=== PATIENT | male | born 1985 | race Caucasian/White ===

== ENCOUNTER → 2024-01-28 | Emergency (ER) | payer OTHER ==
[~2024-01-28] VITALS: Ht 175.3 cm; Wt 81.8 kg
[2024-01-28 15:53] VITALS: TEMP 98.1
[2024-01-28 16:17] VITALS: BP 155/72; PULSE 88; RESP 16
[2024-01-28 16:36] LABS: BASOPHILS % (AUTO) 0.5 % (0.0-2.0); EOSINOPHILS % (AUTO) 3.5 % (1.0-6.0); HEMATOCRIT 44.6 % (41-53); LYMPHOCYTES # (AUTO) 1.7 K/uL (1.0-4.8); MEAN CORPUSCULAR HGB CONC 33.5 G/dL (31.0-37.0); MEAN CORPUSCULAR VOLUME 92 fL (80-100); MONOCYTES # (AUTO) 0.4 K/uL (0.1-1.0); MONOCYTES % (AUTO) 8.4 % (2.0-9.0); NEUTROPHILS # (AUTO) 2.9 K/uL (1.8-7.7); NEUTROPHILS % (AUTO) 55.6 % (40.0-70.0); PLATELET COUNT (AUTO) 278 K/uL (150-450); RED BLOOD CELL COUNT(AUTO) 4.83 MIL/uL (4.50-5.90); RED CELL DISTRIBUTION WIDTH 13.8 % (11.5-14.5); WHITE BLOOD COUNT (AUTO) 5.3 K/uL (4.5-11.0)
[2024-01-28 16:45] LABS: ANION GAP 9 mmol/L (8-16); CALCIUM, TOTAL 8.7 mg/dL (8.8-10.5); CARBON DIOXIDE 26 mmol/L (22-29); CHLORIDE 104 mmol/L (98-107); GLOMERULAR FILTR. RATE CALC > 60 mL/min (>60); GLUCOSE,RANDOM 102 mg/dL (70-110); POTASSIUM 3.7 mmol/L (3.5-5.1); PROTHROMBIN TIME 10.9 SEC (9.4-11.6); SODIUM SERUM 139 mmol/L (136-145); UREA NITROGEN, BLOOD 15 mg/dL (7-18)
[2024-01-28 16:53] LABS: TROPONIN I-HIGH SENSITIVITY 6 ng/L (<76)
[2024-01-28 16:59] LABS: B-TYPE NATRIURETIC PEPTIDE < 5 pg/mL (0-100)
[2024-01-28 17:09] LABS: CREATINE KINASE, TOTAL ONLY 180 U/L (39-308)
== END | disposition still patient (30) ==
LOC: EMS 15:51
DX: R07.89 Other chest pain (principal); Z59.00 Homelessness unspecified
CPT/HCPCS: 71045; 80048; 82550; 83880; 84484; 85025; 85610; 85730; 93005; 99285; 36415-L1; 36415-TC

== ENCOUNTER 2024-02-06 05:30 | Emergency (ER) | payer OTHER ==
[~2024-02-06] VITALS: Ht 175.3 cm; Wt 84.1 kg
[2024-02-06 06:10] VITALS: BP 134/89; PULSE 75; RESP 16; TEMP 97.3
[2024-02-06] MEDS ORDERED: ACET-3385 PO (06:17)
[2024-02-06] MEDS ORDERED: AMOX-457 PO (06:17)
[2024-02-06] MEDS ORDERED: IBUP-1492 PO (06:17)
[2024-02-06] MEDS: AMOX TR/POT CLAV 875 MG/125 MG TABLET PO ONE (06:20)
[2024-02-06] MEDS: IBUPROFEN 600 MG TABLET PO ONE (06:21)
== END 2024-02-06 06:58 | disposition home or self-care (01) ==
LOC: EMS 05:31
DX: K08.89 Other specified disorders of teeth and supporting structures (principal)
CPT/HCPCS: 99283

== ENCOUNTER 2024-02-11 22:00 | Emergency (ER) | payer MEDICAID, OTHER ==
[~2024-02-11 22:00] MED LIST: ACET-3385 PO; AMOX-457 PO; IBUP-1492 PO
[2024-02-11 22:22] VITALS: TEMP 98
[2024-02-11] MEDS: ACETAMINOPHEN 500 MG TABLET PO ONE (23:02)
[2024-02-11] MEDS: HydrOXYzine PAMOATE 25 MG CAPSULE PO ONE (23:02)
[2024-02-11] MEDS: KETOROLAC TROMETHAMINE 60 MG/2 ML VIAL IM ONE (23:02)
[2024-02-12 00:15] VITALS: BP 124/77; PULSE 76; RESP 16
[2024-02-12] MEDS ORDERED: HYDR-4808 PO (01:03)
[2024-02-12] MEDS ORDERED: IBUP-1554 PO (01:03)
== END 2024-02-12 01:15 | disposition home or self-care (01) ==
LOC: EMS 22:00
DX: F41.9 Anxiety disorder, unspecified (principal); R07.89 Other chest pain
CPT/HCPCS: 99284; 71045; 93005; 96372; J1885

== ENCOUNTER 2024-02-17 21:53 | Emergency (ER) | payer MEDICAID ==
[~2024-02-17] VITALS: Ht 175.3 cm; Wt 86.0 kg
[~2024-02-17 21:53] MED LIST changes: +HYDR-4808 PO; +IBUP-1554 PO
[2024-02-17 22:04] VITALS: BP 120/71; PULSE 68; RESP 20; TEMP 98.3
[2024-02-17] MEDS: OxyCODONE HCL/ACETAMINOPHEN 5-325 MG TABLET PO ONE (23:27)
[2024-02-17] MEDS: PENICILLIN V POTASSIUM 500 MG TABLET PO ONE (23:27)
[2024-02-17] MEDS ORDERED: PENI500T2 PO (23:36)
[2024-02-17] MEDS ORDERED: PERCT PO (23:46)
[2024-02-19] MEDS ORDERED: PERCT PO (10:08)
[2024-02-19] MEDS ORDERED: PENI500T2 PO (10:08)
== END 2024-02-18 00:15 | disposition home or self-care (01) ==
LOC: EMS 21:53
DX: K02.9 Dental caries, unspecified (principal)
CPT/HCPCS: 99283

== ENCOUNTER 2024-02-18 20:44 | Emergency (ER) | payer MEDICAID, OTHER ==
[~2024-02-18] VITALS: Ht 175.3 cm; Wt 86.4 kg
[~2024-02-18 20:44] MED LIST changes: +PENI500T2 PO; +PERCT PO
[2024-02-18 20:46] VITALS: TEMP 97.9
[2024-02-18 21:46] LABS: BASOPHILS % (AUTO) 0.2 % (0.0-2.0); EOSINOPHILS % (AUTO) 2.9 % (1.0-6.0); HEMATOCRIT 43.1 % (41-53); HEMOGLOBIN 14.5 g/dL (13.5-17.5); LYMPHOCYTES # (AUTO) 2.9 K/uL (1.0-4.8); LYMPHOCYTES % (AUTO) 35.6 % (22.0-44.0); MEAN CORPUSCULAR HEMOGLOBIN 31.1 pg (26.0-34.0); MEAN CORPUSCULAR HGB CONC 33.6 G/dL (31.0-37.0); MEAN CORPUSCULAR VOLUME 93 fL (80-100); MONOCYTES # (AUTO) 0.7 K/uL (0.1-1.0); MONOCYTES % (AUTO) 8.7 % (2.0-9.0); NEUTROPHILS # (AUTO) 4.3 K/uL (1.8-7.7); NEUTROPHILS % (AUTO) 52.6 % (40.0-70.0); PLATELET COUNT (AUTO) 278 K/uL (150-450); RED BLOOD CELL COUNT(AUTO) 4.65 MIL/uL (4.50-5.90); RED CELL DISTRIBUTION WIDTH 13.9 % (11.5-14.5); WHITE BLOOD COUNT (AUTO) 8.2 K/uL (4.5-11.0)
[2024-02-18 21:54] LABS: ANION GAP 4 mmol/L (8-16); CARBON DIOXIDE 31 mmol/L (22-29); CHLORIDE 103 mmol/L (98-107); CREATININE 1.04 mg/dL (0.60-1.30); GLOMERULAR FILTR. RATE CALC > 60 mL/min (>60); GLUCOSE,RANDOM 104 mg/dL (70-110); POTASSIUM 3.7 mmol/L (3.5-5.1); SODIUM SERUM 138 mmol/L (136-145); UREA NITROGEN, BLOOD 27 mg/dL (7-18)
[2024-02-18 22:03] LABS: TROPONIN I-HIGH SENSITIVITY 6 ng/L (<76)
[2024-02-18 23:13] LABS: APPEARANCE,URINE CLEAR (CLEAR); BILIRUBIN,URINE NEGATIVE (NEGATIVE); COLOR,URINE LIGHT YELLOW (YELLOW); GLUCOSE, URINE (UA) NEGATIVE (NEGATIVE); KETONES,URINE NEGATIVE (NEGATIVE); LEUKOCYTE ESTERASE ,URINE NEGATIVE (NEGATIVE); NITRATE,URINE NEGATIVE (NEGATIVE); OCCULT BLOOD,URINE NEGATIVE (NEGATIVE); PROTEIN,URINE NEGATIVE (NEGATIVE); SPECIFIC GRAVITIY, URINE 1.021 (1.003-1.030); UROBILINOGEN,URINE <=1.0 mg/dL (<=1.0)
[2024-02-18] MEDS: TraMADol HCL 50 MG TABLET PO ONE (23:14)
[2024-02-18 23:23] LABS: ALANINE AMINOTRANSFERASE 39 U/L (12-78); ALBUMIN 3.5 g/dL (3.4-5.0); ALKALINE PHOSPHATASE 59 U/L (46-116); ASPARTATE AMINOTRANSFERASE 18 U/L (15-37); BILIRUBIN,TOTAL 0.2 mg/dL (0.1-1.0); CREATINE KINASE, TOTAL ONLY 99 U/L (39-308); TOTAL PROTEIN, SERUM 6.9 g/dL (6.4-8.2)
[2024-02-19 00:25] VITALS: BP 114/80; PULSE 68; RESP 16
[2024-02-19 00:39] LABS: TROPONIN I-HIGH SENSITIVITY 6 ng/L (<76)
[2024-02-19] MEDS ORDERED: PERCT PO (10:08)
[2024-02-19] MEDS ORDERED: PENI500T2 PO (10:08)
== END 2024-02-19 00:35 | disposition home or self-care (01) ==
LOC: EMS 20:44
DX: K02.9 Dental caries, unspecified (principal); R07.89 Other chest pain; Z72.89 Other problems related to lifestyle
CPT/HCPCS: 71045; 80053; 81003; 82550; 83880; 84484; 85025; 93005; 99285; 36415-L1; 36415-TC

== ENCOUNTER 2024-05-20 02:31 | Emergency (ER) | payer OTHER ==
[~2024-05-20] VITALS: Ht 175.3 cm; Wt 81.8 kg
[2024-05-20 02:32] VITALS: TEMP 98.1
[2024-05-20 03:05] LABS: BASOPHILS % (AUTO) 0.4 % (0.0-2.0); EOSINOPHILS % (AUTO) 2.1 % (1.0-6.0); HEMATOCRIT 48.2 % (41-53); HEMOGLOBIN 16.7 g/dL (13.5-17.5); LYMPHOCYTES # (AUTO) 2.6 K/uL (1.0-4.8); LYMPHOCYTES % (AUTO) 34.1 % (22.0-44.0); MEAN CORPUSCULAR HEMOGLOBIN 31.4 pg (26.0-34.0); MEAN CORPUSCULAR HGB CONC 34.6 G/dL (31.0-37.0); MEAN CORPUSCULAR VOLUME 91 fL (80-100); MONOCYTES # (AUTO) 0.5 K/uL (0.1-1.0); MONOCYTES % (AUTO) 6.7 % (2.0-9.0); NEUTROPHILS # (AUTO) 4.3 K/uL (1.8-7.7); NEUTROPHILS % (AUTO) 56.7 % (40.0-70.0); PLATELET COUNT (AUTO) 367 K/uL (150-450); RED BLOOD CELL COUNT(AUTO) 5.31 MIL/uL (4.50-5.90); RED CELL DISTRIBUTION WIDTH 13.6 % (11.5-14.5); WHITE BLOOD COUNT (AUTO) 7.6 K/uL (4.5-11.0)
[2024-05-20 03:16] LABS: ANION GAP 6 mmol/L (8-16); CALCIUM, TOTAL 8.9 mg/dL (8.8-10.5); CARBON DIOXIDE 32 mmol/L (22-29); CHLORIDE 101 mmol/L (98-107); CREATININE 0.95 mg/dL (0.60-1.30); GLOMERULAR FILTR. RATE CALC > 60 mL/min (>60); GLUCOSE,RANDOM 108 mg/dL (70-110); POTASSIUM 3.8 mmol/L (3.5-5.1); SODIUM SERUM 139 mmol/L (136-145); UREA NITROGEN, BLOOD 8 mg/dL (7-18)
[2024-05-20 03:35] LABS: TROPONIN I-HIGH SENSITIVITY 7 ng/L (<76)
[2024-05-20] MEDS: KETOROLAC TROMETHAMINE 30 MG/ML VIAL IM ONE (03:36)
[2024-05-20] MEDS: ACETAMINOPHEN 325 MG TABLET PO ONE (03:36)
[2024-05-20 04:40] VITALS: BP 135/91; PULSE 99; RESP 20; O2SAT 99
[2024-05-20] MEDS ORDERED: ACET-66 PO (15:17)
[2024-05-20] MEDS ORDERED: MAG30ORA11 PO (15:17)
[2024-05-20] MEDS ORDERED: OMEP20 PO (15:17)
== END 2024-05-20 05:10 | disposition home or self-care (01) ==
LOC: EMS 02:31
DX: R07.89 Other chest pain (principal); F41.9 Anxiety disorder, unspecified; M54.6 Pain in thoracic spine
CPT/HCPCS: 99285; 71045; 80048; 84484; 85025; 36415; 93005; 96372; J1885

== ENCOUNTER 2024-05-20 14:04 | Emergency (ER) | payer OTHER ==
[~2024-05-20] VITALS: Ht 175.3 cm; Wt 72.7 kg
[2024-05-20 14:07] VITALS: TEMP 98.6
[2024-05-20] MEDS: PB/HYOSCY/ATR/SCOP/LIDO/MAALOX 55 ML BOTTLE PO ONE (14:56)
[2024-05-20] MEDS: ONDANSETRON 4 MG TABLET PO ONE (14:57)
[2024-05-20] MEDS: ACETAMINOPHEN 500 MG TABLET PO ONE (14:57)
[2024-05-20] MEDS ORDERED: ACET-66 PO (15:17)
[2024-05-20] MEDS ORDERED: OMEP20 PO (15:17)
[2024-05-20] MEDS ORDERED: MAG30ORA11 PO (15:17)
[2024-05-20 15:29] VITALS: BP 136/88; PULSE 88; RESP 18; O2SAT 98
== END 2024-05-20 15:30 | disposition home or self-care (01) ==
LOC: EMS 14:05
DX: K29.70 Gastritis, unspecified, without bleeding (principal); F41.9 Anxiety disorder, unspecified
CPT/HCPCS: 99284; Q0162

== ENCOUNTER 2024-07-10 15:03 | Emergency (ER) | payer OTHER ==
[~2024-07-10] VITALS: Ht 177.8 cm; Wt 77.3 kg
[~2024-07-10 15:03] MED LIST changes: -ACET-3385 PO; +ACET-66 PO; -AMOX-457 PO; -HYDR-4808 PO; -IBUP-1492 PO; -IBUP-1554 PO; +MAG30ORA11 PO; +OMEP20 PO; -PENI500T2 PO; -PERCT PO
[2024-07-10 15:07] VITALS: BP 125/72; PULSE 90; RESP 18; TEMP 98.6; O2SAT 99
[2024-07-10 15:27] LABS: BASOPHILS % (AUTO) 0.3 % (0.0-2.0); HEMATOCRIT 47.6 % (41-53); HEMOGLOBIN 15.9 g/dL (13.5-17.5); LYMPHOCYTES # (AUTO) 1.6 K/uL (1.0-4.8); LYMPHOCYTES % (AUTO) 24.3 % (22.0-44.0); MEAN CORPUSCULAR HGB CONC 33.5 G/dL (31.0-37.0); MEAN CORPUSCULAR VOLUME 93 fL (80-100); MONOCYTES # (AUTO) 0.4 K/uL (0.1-1.0); MONOCYTES % (AUTO) 6.4 % (2.0-9.0); NEUTROPHILS # (AUTO) 4.5 K/uL (1.8-7.7); PLATELET COUNT (AUTO) 276 K/uL (150-450); RED BLOOD CELL COUNT(AUTO) 5.14 MIL/uL (4.50-5.90); RED CELL DISTRIBUTION WIDTH 14.1 % (11.5-14.5); WHITE BLOOD COUNT (AUTO) 6.7 K/uL (4.5-11.0)
[2024-07-10 15:39] LABS: ANION GAP 6 mmol/L (8-16); CALCIUM, TOTAL 8.4 mg/dL (8.8-10.5); CARBON DIOXIDE 31 mmol/L (22-29); CHLORIDE 106 mmol/L (98-107); CREATININE 0.98 mg/dL (0.60-1.30); GLOMERULAR FILTR. RATE CALC > 60 mL/min (>60); GLUCOSE,RANDOM 101 mg/dL (70-110); POTASSIUM 3.9 mmol/L (3.5-5.1); SODIUM SERUM 143 mmol/L (136-145); UREA NITROGEN, BLOOD 18 mg/dL (7-18)
[2024-07-10 16:43] LABS: PH,URINE DRUG SCREEN 6.5 (5.0-8.0)
[2024-07-10 16:49] LABS: ALCOHOL, URINE DRUG SCREEN NEGATIVE (NEGATIVE); AMPHET/METH SCREEN,URINE POSITIVE (NEGATIVE); BARBITURATE SCREEN, URINE NEGATIVE (NEGATIVE); BENZODIAZEPINES SCREEN,URINE NEGATIVE (NEGATIVE); CANNABINOID SCREEN,URINE NEGATIVE (NEGATIVE); COCAINE SCREEN,URINE NEGATIVE (NEGATIVE); METHADONE SCREEN, URINE NEGATIVE (NEGATIVE); OPIATE SCREEN,URINE NEGATIVE (NEGATIVE); PHENCYCLIDINE SCREEN,URINE NEGATIVE (NEGATIVE)
[2024-07-10] MEDS ORDERED: HYDR50CA7 PO (17:33)
== END 2024-07-10 17:42 | disposition home or self-care (01) ==
LOC: EMS 15:10
DX: R07.89 Other chest pain (principal); R06.02 Shortness of breath; R51.9 Headache, unspecified; F41.9 Anxiety disorder, unspecified; F15.10 Other stimulant abuse, uncomplicated
CPT/HCPCS: 71045; 80048; 80307; 85025; 93005; 99285; 36415-L1; 36415-TC

== ENCOUNTER → 2025-04-06 | Emergency (ER) | payer OTHER ==
[~2025-04-06] VITALS: Ht 175.3 cm; Wt 75.0 kg
[~2025-04-06] MED LIST changes: +HYDR50CA7 PO; +OMEP-148 PO; -OMEP20 PO
[2025-04-06 18:54] LABS: PLATELET COUNT (AUTO) 330 K/uL (150-450); RED BLOOD CELL COUNT(AUTO) 5.69 MIL/uL (4.50-5.90); RED CELL DISTRIBUTION WIDTH 13.9 % (11.5-14.5); WHITE BLOOD COUNT (AUTO) 9.6 K/uL (4.5-11.0)
[2025-04-06 19:05] LABS: CALCIUM, TOTAL 9.4 mg/dL (8.8-10.5); CREATININE 1.06 mg/dL (0.60-1.30); GLOMERULAR FILTR. RATE CALC > 60 mL/min (>60); GLUCOSE,RANDOM 99 mg/dL (70-110); SODIUM SERUM 138 mmol/L (136-145); UREA NITROGEN, BLOOD 9 mg/dL (7-18)
[2025-04-06] MEDS: POTASSIUM CHLORIDE 20 MEQ ER TABLET PO ONE (19:29)
[2025-04-06] MEDS: SODIUM CHLORIDE 0.9% 1,000 ML IV ONE (19:30)
[2025-04-06] MEDS: LORazepam 2 MG/ML VIAL IVP ONE (19:31)
[2025-04-06 20:02] LABS: COVID AG,FIA SOURCE NASAL SWAB
[2025-04-06 20:33] LABS: SARS-COV2 (COVID) ANTIGEN,FIA Negative (Negative)
[2025-04-06 21:27] VITALS: BP 128/75; PULSE 90; RESP 20; TEMP 97.9; O2SAT 100
== END | disposition still patient (30) ==
LOC: EMS 18:05
DX: F41.9 Anxiety disorder, unspecified (principal); F15.10 Other stimulant abuse, uncomplicated; F10.90 Alcohol use, unspecified, uncomplicated; Z20.822 Contact with and (suspected) exposure to COVID-19; Y90.9 Presence of alcohol in blood, level not specified
CPT/HCPCS: 99283; 96374; 96361; 87426; 80048; 85025; 36415; G0480; J2060; J7030

== ENCOUNTER 2025-04-17 21:13 | Emergency (ER) | payer OTHER ==
[~2025-04-17] VITALS: Ht 172.7 cm; Wt 81.8 kg
[2025-04-17 21:36] VITALS: TEMP 98.6
[2025-04-17 22:19] LABS: PLATELET COUNT (AUTO) 298 K/uL (150-450); RED BLOOD CELL COUNT(AUTO) 5.32 MIL/uL (4.50-5.90); RED CELL DISTRIBUTION WIDTH 13.8 % (11.5-14.5); WHITE BLOOD COUNT (AUTO) 6.7 K/uL (4.5-11.0)
[2025-04-17 22:24] LABS: CALCIUM, TOTAL 8.8 mg/dL (8.8-10.5); CREATININE 0.80 mg/dL (0.60-1.30); GLOMERULAR FILTR. RATE CALC > 60 mL/min (>60); GLUCOSE,RANDOM 106 mg/dL (70-110); SODIUM SERUM 138 mmol/L (136-145); UREA NITROGEN, BLOOD 8 mg/dL (7-18)
[2025-04-17 22:29] LABS: CREATINE KINASE, TOTAL ONLY 125 U/L (39-308)
[2025-04-17 22:32] LABS: TROPONIN I-HIGH SENSITIVITY 4 ng/L (<76)
[2025-04-18 01:46] VITALS: BP 119/84; PULSE 84; RESP 16; O2SAT 97
[2025-04-18] MEDS: MECLIZINE HCL 25 MG TABLET PO ONE (02:09)
== END 2025-04-18 03:55 | disposition home or self-care (01) ==
LOC: EMS 21:13
DX: R42 Dizziness and giddiness (principal); R06.02 Shortness of breath; F15.90 Other stimulant use, unspecified, uncomplicated
CPT/HCPCS: 71045; 80048; 82550; 83880; 84484; 85025; 85379; 93005; 99285; 36415-L1; 36415-TC

== ENCOUNTER 2025-04-29 00:46 | Emergency (ER) | payer OTHER ==
[~2025-04-29] VITALS: Ht 172.7 cm; Wt 81.8 kg
[2025-04-29 01:00] VITALS: BP 143/80; PULSE 80; RESP 16; TEMP 98.7; O2SAT 98
[2025-04-29] MEDS ORDERED: AMOX500C2 PO (01:20)
[2025-04-29] MEDS ORDERED: HYDR-4062 PO (01:20)
[2025-04-29] MEDS ORDERED: IBUP-1493 PO (01:20)
[2025-04-29] MEDS: LIDOCAINE/PF 1% 2 ML VIAL IM ONE (01:41)
[2025-04-29] MEDS: KETOROLAC TROMETHAMINE 30 MG/ML VIAL IM ONE (01:41)
[2025-04-29] MEDS: CefTRIAXone SODIUM 1 GM/VIAL IM ONE (01:41)
== END 2025-04-29 02:07 | disposition home or self-care (01) ==
LOC: EMS 00:47
DX: K02.9 Dental caries, unspecified (principal); K04.7 Periapical abscess without sinus; K08.89 Other specified disorders of teeth and supporting structures; R68.84 Jaw pain; F17.210 Nicotine dependence, cigarettes, uncomplicated; F10.90 Alcohol use, unspecified, uncomplicated; Z79.899 Other long term (current) drug therapy; Y90.9 Presence of alcohol in blood, level not specified
CPT/HCPCS: 99284; 96372; J1885; J0696; J3490

== ENCOUNTER 2025-04-29 18:55 | Emergency (ER) | payer OTHER ==
[~2025-04-29] VITALS: Ht 170.2 cm; Wt 68.2 kg
[~2025-04-29 18:55] MED LIST changes: -ACET-66 PO; +AMOX500C2 PO; +HYDR-4062 PO; -HYDR50CA7 PO; +IBUP-1493 PO; -MAG30ORA11 PO; -OMEP-148 PO
[2025-04-29 19:30] VITALS: BP 129/89; PULSE 92; RESP 18; TEMP 97.8; O2SAT 99
[2025-04-29 19:31] LABS: PLATELET COUNT (AUTO) 251 K/uL (150-450); RED BLOOD CELL COUNT(AUTO) 4.88 MIL/uL (4.50-5.90); RED CELL DISTRIBUTION WIDTH 13.4 % (11.5-14.5); WHITE BLOOD COUNT (AUTO) 7.3 K/uL (4.5-11.0)
[2025-04-29] MEDS: FAMOTIDINE 20 MG TABLET PO ONE (19:35)
[2025-04-29] MEDS: ACETAMINOPHEN 500 MG TABLET PO ONE (19:36)
[2025-04-29] MEDS: MAG HYDROX/ALUMINUM HYD/SIMETH 30 ML SUSPENSION UDCUP PO ONE (19:36)
[2025-04-29 19:45] LABS: CALCIUM, TOTAL 8.7 mg/dL (8.8-10.5); CREATININE 0.70 mg/dL (0.60-1.30); GLOMERULAR FILTR. RATE CALC > 60 mL/min (>60); GLUCOSE,RANDOM 109 mg/dL (70-110); SODIUM SERUM 140 mmol/L (136-145); UREA NITROGEN, BLOOD 14 mg/dL (7-18)
[2025-04-29 19:52] LABS: TROPONIN I-HIGH SENSITIVITY 7 ng/L (<76)
== END 2025-04-29 21:27 | disposition home or self-care (01) ==
LOC: EMS 18:55
DX: R07.89 Other chest pain (principal); F15.90 Other stimulant use, unspecified, uncomplicated; F41.9 Anxiety disorder, unspecified; K02.9 Dental caries, unspecified; F10.90 Alcohol use, unspecified, uncomplicated; Y90.9 Presence of alcohol in blood, level not specified
CPT/HCPCS: 99285; 71045; 80048; 84484; 85025; 36415; 93005; G0480

== ENCOUNTER 2025-05-02 16:42 | Emergency (ER) | payer OTHER ==
[~2025-05-02] VITALS: Ht 175.3 cm; Wt 81.8 kg
[2025-05-02] MEDS: ACETAMINOPHEN 500 MG TABLET PO ONE (17:36)
[2025-05-02 17:37] VITALS: TEMP 98.1
[2025-05-02 18:38] LABS: CALCIUM, TOTAL 9.0 mg/dL (8.8-10.5); CREATININE 0.78 mg/dL (0.60-1.30); GLOMERULAR FILTR. RATE CALC > 60 mL/min (>60); GLUCOSE,RANDOM 117 mg/dL (70-110); SODIUM SERUM 138 mmol/L (136-145); UREA NITROGEN, BLOOD 8 mg/dL (7-18)
[2025-05-02 18:39] LABS: PLATELET COUNT (AUTO) 320 K/uL (150-450); RED BLOOD CELL COUNT(AUTO) 5.50 MIL/uL (4.50-5.90); RED CELL DISTRIBUTION WIDTH 13.5 % (11.5-14.5); WHITE BLOOD COUNT (AUTO) 7.7 K/uL (4.5-11.0)
[2025-05-02 18:54] LABS: TROPONIN I-HIGH SENSITIVITY 5 ng/L (<76)
[2025-05-02] MEDS: POTASSIUM CHLORIDE 20 MEQ ER TABLET PO ONE (19:01)
[2025-05-02 19:04] LABS: PH,URINE DRUG SCREEN 7.5 (5.0-8.0)
[2025-05-02 19:08] LABS: ALCOHOL, URINE DRUG SCREEN NEGATIVE (NEGATIVE); AMPHET/METH SCREEN,URINE POSITIVE (NEGATIVE); BARBITURATE SCREEN, URINE NEGATIVE (NEGATIVE); CANNABINOID SCREEN,URINE NEGATIVE (NEGATIVE); COCAINE SCREEN,URINE NEGATIVE (NEGATIVE); METHADONE SCREEN, URINE NEGATIVE (NEGATIVE)
[2025-05-02 19:52] VITALS: BP 140/88; PULSE 76; RESP 18; O2SAT 97
== END 2025-05-02 19:54 | disposition home or self-care (01) ==
LOC: EMS 16:42
DX: R07.89 Other chest pain (principal); F15.10 Other stimulant abuse, uncomplicated; F41.9 Anxiety disorder, unspecified; F10.90 Alcohol use, unspecified, uncomplicated; Y90.9 Presence of alcohol in blood, level not specified
CPT/HCPCS: 71045; 80048; 80307; 84484; 85025; 93005; 99285; 36415-L1; 36415-TC

== ENCOUNTER 2025-05-12 21:30 | Emergency (ER) | payer OTHER ==
[~2025-05-12] VITALS: Ht 174 cm; Wt 84.1 kg
[2025-05-13 01:10] VITALS: TEMP 98.2
[2025-05-13 03:00] VITALS: BP 142/88; PULSE 68; RESP 18; O2SAT 99
[2025-05-13] MEDS: ACETAMINOPHEN 500 MG TABLET PO ONE (04:52)
[2025-05-13] MEDS: IBUPROFEN 400 MG TABLET PO ONE (04:52)
[2025-05-13] MEDS: LIDOCAINE 5% TRANSDERMAL PATCH TD ONE (04:53)
== END 2025-05-13 05:30 | disposition home or self-care (01) ==
LOC: EMS 21:30
DX: S23.3XXA Sprain of ligaments of thoracic spine, initial encounter (principal); I10 Essential (primary) hypertension; X50.3XXA Overexertion from repetitive movements, initial encounter; Y93.89 Activity, other specified; Y92.89 Other specified places as the place of occurrence of the external cause; Y99.8 Other external cause status
CPT/HCPCS: 93005; 99284; Z7502; Z7610

== ENCOUNTER 2025-05-24 09:10 | Emergency (ER) | payer OTHER ==
[~2025-05-24] VITALS: Ht 175.3 cm; Wt 86.4 kg
[2025-05-24 09:28] LABS: COVID AG,FIA SOURCE NASAL SWAB
[2025-05-24 10:08] LABS: SARS-COV2 (COVID) ANTIGEN,FIA Negative (Negative)
[2025-05-24 10:09] LABS: INFLUENZA TYPE A NEGATIVE FOR TYPE A (NEGATIVE); INFLUENZA TYPE B NEGATIVE FOR TYPE B (NEGATIVE)
[2025-05-24] MEDS ORDERED: BENZ-227 PO (12:12)
[2025-05-24] MEDS ORDERED: AZIT250T9 PO (12:12)
[2025-05-24] MEDS: ALBUTEROL SULFATE HFA 90 MCG/PUFF 8 GM INHALER IH ONE (12:34)
[2025-05-24] MEDS: AZITHROMYCIN 500 MG TABLET PO ONE (12:34)
[2025-05-24 13:05] VITALS: BP 131/82; PULSE 69; RESP 16; TEMP 98.2; O2SAT 99
== END 2025-05-24 13:51 | disposition home or self-care (01) ==
LOC: EMS 09:12
DX: J18.9 Pneumonia, unspecified organism (principal); R05.9 Cough, unspecified; F15.90 Other stimulant use, unspecified, uncomplicated; Z87.891 Personal history of nicotine dependence; Z20.822 Contact with and (suspected) exposure to COVID-19
CPT/HCPCS: 99284; 71046; 87426; 87804; 94640; J0456; J3535

== ENCOUNTER 2025-06-05 16:15 | Emergency (ER) | payer OTHER ==
[~2025-06-05] VITALS: Ht 177.8 cm; Wt 81.8 kg
[~2025-06-05 16:15] MED LIST changes: -AMOX500C2 PO; +AZIT250T9 PO; +BENZ-227 PO; -HYDR-4062 PO; -IBUP-1493 PO
[2025-06-05 16:21] VITALS: BP 130/80; PULSE 84; RESP 18; TEMP 98.1; O2SAT 99
[2025-06-05 17:11] LABS: COVID AG,FIA SOURCE NASAL SWAB
[2025-06-05 17:26] LABS: SARS-COV2 (COVID) ANTIGEN,FIA Negative (Negative)
[2025-06-05 17:32] LABS: INFLUENZA TYPE A NEGATIVE FOR TYPE A (NEGATIVE); INFLUENZA TYPE B NEGATIVE FOR TYPE B (NEGATIVE)
[2025-06-05] MEDS ORDERED: ALBU18HF12 IH (17:50)
== END 2025-06-05 18:16 | disposition home or self-care (01) ==
LOC: EMS 16:15
DX: R05.9 Cough, unspecified (principal); R06.02 Shortness of breath; J18.9 Pneumonia, unspecified organism; F15.90 Other stimulant use, unspecified, uncomplicated; Z87.891 Personal history of nicotine dependence; Z79.899 Other long term (current) drug therapy; Z20.822 Contact with and (suspected) exposure to COVID-19
CPT/HCPCS: 71046; 87804; 99284

== ENCOUNTER 2025-06-07 20:20 | Emergency (ER) | payer OTHER ==
[~2025-06-07] VITALS: Ht 172.7 cm; Wt 81.8 kg
[~2025-06-07 20:20] MED LIST changes: +ALBU18HF12 IH
[2025-06-07 20:44] VITALS: BP 147/106; PULSE 104; RESP 16; TEMP 98.8; O2SAT 98
[2025-06-07 22:10] LABS: CALCIUM, TOTAL 8.8 mg/dL (8.8-10.5); CREATININE 0.76 mg/dL (0.60-1.30); GLOMERULAR FILTR. RATE CALC > 60 mL/min (>60); GLUCOSE,RANDOM 115 mg/dL (70-110); SODIUM SERUM 138 mmol/L (136-145); UREA NITROGEN, BLOOD 7 mg/dL (7-18)
[2025-06-07 22:16] LABS: PLATELET COUNT (AUTO) 311 K/uL (150-450); RED BLOOD CELL COUNT(AUTO) 5.20 MIL/uL (4.50-5.90); RED CELL DISTRIBUTION WIDTH 13.9 % (11.5-14.5); WHITE BLOOD COUNT (AUTO) 5.8 K/uL (4.5-11.0)
[2025-06-07 22:17] LABS: BAND NEUTROPHILS % (MANUAL) 0 % (0-5)
[2025-06-07 22:35] LABS: LYMPHOCYTES % (MANUAL) 37 % (22-44); MONOCYTES % (MANUAL) 4 % (2-9); SEGMENTED NEUTROPHILS % 59 % (40-70)
[2025-06-07 23:32] LABS: TROPONIN I-HIGH SENSITIVITY 8 ng/L (<76)
[2025-06-08] MEDS: SODIUM CHLORIDE 0.9% 1,000 ML IV ONE (00:06)
[2025-06-09] MEDS ORDERED: FAMO20 PO (02:14)
== END 2025-06-08 03:05 | disposition home or self-care (01) ==
LOC: EMS 20:22
DX: E86.0 Dehydration (principal); F15.90 Other stimulant use, unspecified, uncomplicated; Z79.899 Other long term (current) drug therapy
CPT/HCPCS: 99285; 71045; 80048; 84484; 85025; 36415; 93005; 96360; 96361; G0480; J7030

== ENCOUNTER 2025-06-08 22:09 | Emergency (ER) | payer OTHER ==
[~2025-06-08] VITALS: Ht 167.6 cm; Wt 81.8 kg
[2025-06-08] MEDS: MAG HYDROX/ALUMINUM HYD/SIMETH ES 30 ML SUSPENSION UDCUP PO ONE (23:00)
[2025-06-08 23:56] LABS: PLATELET COUNT (AUTO) 291 K/uL (150-450); RED BLOOD CELL COUNT(AUTO) 4.99 MIL/uL (4.50-5.90); RED CELL DISTRIBUTION WIDTH 13.7 % (11.5-14.5); WHITE BLOOD COUNT (AUTO) 7.6 K/uL (4.5-11.0)
[2025-06-09 00:05] LABS: CALCIUM, TOTAL 8.6 mg/dL (8.8-10.5); CREATININE 0.72 mg/dL (0.60-1.30); GLOMERULAR FILTR. RATE CALC > 60 mL/min (>60); GLUCOSE,RANDOM 109 mg/dL (70-110); SODIUM SERUM 138 mmol/L (136-145); UREA NITROGEN, BLOOD 7 mg/dL (7-18)
[2025-06-09 00:09] LABS: ASPARTATE AMINOTRANSFERASE 21.0 U/L (15-37); TOTAL PROTEIN, SERUM 6.9 g/dL (6.4-8.2)
[2025-06-09 01:09] VITALS: O2SAT 99
[2025-06-09] MEDS ORDERED: FAMO20 PO (02:14)
[2025-06-09 02:23] VITALS: BP 127/75; PULSE 78; RESP 19; TEMP 97.3
== END 2025-06-09 02:37 | disposition home or self-care (01) ==
LOC: EMS 22:10
DX: K21.9 Gastro-esophageal reflux disease without esophagitis (principal); F15.90 Other stimulant use, unspecified, uncomplicated; Z87.01 Personal history of pneumonia (recurrent)
CPT/HCPCS: 80048; 80076; 83690; 85025; 93005; 99284

== ENCOUNTER 2025-06-10 19:25 | Emergency (ER) | payer OTHER ==
[~2025-06-10] VITALS: Ht 172.7 cm; Wt 86.4 kg
[~2025-06-10 19:25] MED LIST changes: +FAMO20 PO
[2025-06-10 19:33] VITALS: BP 110/75; PULSE 90; RESP 16; TEMP 98.2; O2SAT 100
[2025-06-10 20:00] LABS: PLATELET COUNT (AUTO) 304 K/uL (150-450); RED BLOOD CELL COUNT(AUTO) 5.15 MIL/uL (4.50-5.90); RED CELL DISTRIBUTION WIDTH 14.1 % (11.5-14.5); WHITE BLOOD COUNT (AUTO) 6.7 K/uL (4.5-11.0)
[2025-06-10 20:08] LABS: CALCIUM, TOTAL 8.6 mg/dL (8.8-10.5); CREATININE 0.75 mg/dL (0.60-1.30); GLOMERULAR FILTR. RATE CALC > 60 mL/min (>60); GLUCOSE,RANDOM 108 mg/dL (70-110); SODIUM SERUM 141 mmol/L (136-145); UREA NITROGEN, BLOOD 10 mg/dL (7-18)
[2025-06-10] MEDS: ACETAMINOPHEN 500 MG TABLET PO ONE (20:09)
[2025-06-10] MEDS: MAG HYDROX/ALUMINUM HYD/SIMETH 30 ML SUSPENSION UDCUP PO ONE (20:09)
[2025-06-10] MEDS: FAMOTIDINE 20 MG TABLET PO ONE (20:10)
[2025-06-10 20:19] LABS: TROPONIN I-HIGH SENSITIVITY 6 ng/L (<76)
[2025-06-10 22:20] LABS: TROPONIN I-HIGH SENSITIVITY 6 ng/L (<76)
== END 2025-06-11 00:31 | disposition home or self-care (01) ==
LOC: EMS 19:25
DX: R07.89 Other chest pain (principal); I10 Essential (primary) hypertension; F15.90 Other stimulant use, unspecified, uncomplicated; R06.02 Shortness of breath; Z87.01 Personal history of pneumonia (recurrent)
CPT/HCPCS: 71045; 80048; 83880; 84484; 85025; 93005; 99285; 36415-L1; 36415-TC

== ENCOUNTER 2025-07-20 15:43 | Emergency (ER) | payer OTHER ==
[~2025-07-20] VITALS: Ht 172.7 cm; Wt 81.8 kg
[~2025-07-20 15:43] MED LIST changes: -AZIT250T9 PO
[2025-07-20 15:49] VITALS: TEMP 98.2
[2025-07-20] MEDS ORDERED: ROSU20TA98 PO (15:51)
[2025-07-20 16:41] LABS: PLATELET COUNT (AUTO) 264 K/uL (150-450); RED BLOOD CELL COUNT(AUTO) 5.34 MIL/uL (4.50-5.90); RED CELL DISTRIBUTION WIDTH 13.8 % (11.5-14.5); WHITE BLOOD COUNT (AUTO) 6.1 K/uL (4.5-11.0)
[2025-07-20 16:50] LABS: CALCIUM, TOTAL 8.7 mg/dL (8.8-10.5); CREATININE 0.79 mg/dL (0.60-1.30); GLOMERULAR FILTR. RATE CALC > 60 mL/min (>60); GLUCOSE,RANDOM 97 mg/dL (70-110); SODIUM SERUM 139 mmol/L (136-145); UREA NITROGEN, BLOOD 8 mg/dL (7-18)
[2025-07-20] MEDS: MAG HYDROX/ALUMINUM HYD/SIMETH ES 30 ML SUSPENSION UDCUP PO ONE (17:16)
[2025-07-20] MEDS: OMEPRAZOLE 20 MG CAPSULE PO ONE (17:16)
[2025-07-20] MEDS ORDERED: HYDR-4808 PO (18:02)
[2025-07-20] MEDS ORDERED: OMEP-148 PO (18:02)
[2025-07-20] MEDS ORDERED: MAG30ORA11 PO (18:02)
[2025-07-20 18:08] VITALS: BP 118/74; PULSE 72; RESP 16; O2SAT 99
== END 2025-07-20 18:13 | disposition home or self-care (01) ==
LOC: EMS 15:43
DX: F15.10 Other stimulant abuse, uncomplicated (principal); F41.9 Anxiety disorder, unspecified; R07.89 Other chest pain; K29.70 Gastritis, unspecified, without bleeding; E78.00 Pure hypercholesterolemia, unspecified; Z79.899 Other long term (current) drug therapy
CPT/HCPCS: 80048; 83690; 85025; 99284

== ENCOUNTER 2025-07-25 01:42 | Emergency (ER) | payer OTHER ==
[~2025-07-25] VITALS: Ht 172.7 cm; Wt 180.0 kg
[~2025-07-25 01:42] MED LIST changes: -ALBU18HF12 IH; -BENZ-227 PO; -FAMO20 PO; +HYDR-4808 PO; +MAG30ORA11 PO; +OMEP-148 PO
[2025-07-25 01:46] VITALS: TEMP 98.1
[2025-07-25 02:11] LABS: PLATELET COUNT (AUTO) 259 K/uL (150-450); RED BLOOD CELL COUNT(AUTO) 5.11 MIL/uL (4.50-5.90); RED CELL DISTRIBUTION WIDTH 13.9 % (11.5-14.5); WHITE BLOOD COUNT (AUTO) 9.3 K/uL (4.5-11.0)
[2025-07-25 02:25] LABS: CALCIUM, TOTAL 8.7 mg/dL (8.8-10.5); CREATININE 0.72 mg/dL (0.60-1.30); GLOMERULAR FILTR. RATE CALC > 60 mL/min (>60); GLUCOSE,RANDOM 170 mg/dL (70-110); SODIUM SERUM 139 mmol/L (136-145); UREA NITROGEN, BLOOD 12 mg/dL (7-18)
[2025-07-25 02:25] LABS: APPEARANCE,URINE CLEAR (CLEAR); GLUCOSE, URINE (UA) NEGATIVE (NEGATIVE); LEUKOCYTE ESTERASE ,URINE NEGATIVE (NEGATIVE); NITRATE,URINE NEGATIVE (NEGATIVE); OCCULT BLOOD,URINE NEGATIVE (NEGATIVE); PH,URINE DRUG SCREEN 6.0 (5.0-8.0); SPECIFIC GRAVITIY, URINE 1.028 (1.003-1.030)
[2025-07-25 02:31] LABS: ALCOHOL, URINE DRUG SCREEN NEGATIVE (NEGATIVE); AMPHET/METH SCREEN,URINE POSITIVE (NEGATIVE); BARBITURATE SCREEN, URINE NEGATIVE (NEGATIVE); CANNABINOID SCREEN,URINE POSITIVE (NEGATIVE); COCAINE SCREEN,URINE NEGATIVE (NEGATIVE); METHADONE SCREEN, URINE NEGATIVE (NEGATIVE)
[2025-07-25 02:33] LABS: TROPONIN I-HIGH SENSITIVITY 21 ng/L (<76)
[2025-07-25] MEDS: POTASSIUM CHLORIDE 20 MEQ ER TABLET PO ONE (03:08)
[2025-07-25 03:12] VITALS: BP 146/102; PULSE 104; RESP 20; O2SAT 98
== END 2025-07-25 03:15 | disposition home or self-care (01) ==
LOC: EMS 01:42
DX: F15.10 Other stimulant abuse, uncomplicated (principal); F41.9 Anxiety disorder, unspecified; E78.00 Pure hypercholesterolemia, unspecified; Z79.899 Other long term (current) drug therapy
CPT/HCPCS: 99285; 71045; 80048; 81003; 84484; 85025; 36415; 93005; 80307; G0480